=== PATIENT | female | born 1990 ===

== ENCOUNTER → 2023-10-09 07:55 | Outpatient (BNVA) | payer OTHER, SELFPAY | PROVIDERS: PCP Clinical Nurse Specialist Adult Health; Visit Provider Nurse Practitioner Family | DX: L91.8 Other hypertrophic disorders of the skin (principal); D22.5 Melanocytic nevi of trunk; L81.4 Other melanin hyperpigmentation; Z71.89 Other specified counseling | CPT/HCPCS: 17110; 99203 ==

== ENCOUNTER → 2024-08-29 11:28 | Outpatient (BNVA) | payer OTHER, SELFPAY | PROVIDERS: PCP Clinical Nurse Specialist Adult Health; Visit Provider Nurse Practitioner Family | DX: L70.0 Acne vulgaris (principal); L73.8 Other specified follicular disorders; D22.5 Melanocytic nevi of trunk; L81.4 Other melanin hyperpigmentation; L57.0 Actinic keratosis | CPT/HCPCS: 17000; 99213 ==

== ENCOUNTER 2024-10-16 10:24 | Outpatient (CLI) | payer OTHER, SELFPAY ==
--- NOTE | 2024-10-16 10:29 | MR_ITS ---
WS: [id number] MRI LEFT SHOULDER HISTORY: NONTRAUMATIC TEAR OF L ROTATOR CUFF COMPARISON: None available. TECHNIQUE: Multiplanar sequences of the shoulder joint are submitted. Moderate AC joint arthritis. There is mild encroachment upon the myotendinous portion of the supraspinatus. Small amount of fluid in the subacromial bursa. Enthesopathy from the distal clavicle encroaching upon the distal supraspinatus. No os acromion. Normal position of the biceps tendon. Normal glenohumeral joint. There is increased T2 signal along the bursal surface of the distal supraspinatus tendon. Signal abnormality is just distal to the AC joint impingement and involves the bursal surface. No full-thickness tear is identified. There is also increased T2 signal related to subacromial impingement and enthesopathy. Insertion site tear of the supraspinatus tendon. Tendinopathy in the more proximal supraspinatus tendon. Marked tendinopathy of the distal subscapularis tendon. Subscapularis tendon is being displaced by a lesser tuberosity osteophyte. Moderate narrowing of the coracohumeral interval. No labral tear id entified. MR/MR shoulder LT wo con* [id number] IMPRESSION: 1. Moderate AC joint arthritis encroaching upon the myotendinous portion of th e supraspinatus. 2. Moderate subacromial impingement by enthesopathy from the acromion. 3. Edema within the bursal surface of the distal supraspinatus tendon at the l evel of the AC joint and subacromial impingement. 4. Insertion site tear of the supraspinatus tendon with more proximal tendinop athy. 5. Marked tendinopathy with loss of the normal morphology of the distal subsca pularis tendon. Marked narrowing of the coracohumeral interval.
== END 2024-10-16 10:25 | disposition home or self-care (01) ==
PROVIDERS: PCP Clinical Nurse Specialist Adult Health; Visit Provider Family Medicine
DX: M75.102 Unspecified rotator cuff tear or rupture of left shoulder, not specified as traumatic (principal); M19.012 Primary osteoarthritis, left shoulder; M75.42 Impingement syndrome of left shoulder; R60.0 Localized edema; M67.814 Other specified disorders of tendon, left shoulder; M77.8 Other enthesopathies, not elsewhere classified; M25.712 Osteophyte, left shoulder; R93.7 Abnormal findings on diagnostic imaging of other parts of musculoskeletal system
CPT/HCPCS: 73221

== ENCOUNTER → 2024-11-04 11:25 | Outpatient (BNVA) | payer OTHER, SELFPAY | PROVIDERS: PCP Clinical Nurse Specialist Adult Health; Visit Provider Nurse Practitioner | DX: M25.512 Pain in left shoulder (principal); M75.102 Unspecified rotator cuff tear or rupture of left shoulder, not specified as traumatic; M75.42 Impingement syndrome of left shoulder; M19.012 Primary osteoarthritis, left shoulder; M67.911 Unspecified disorder of synovium and tendon, right shoulder; M75.51 Bursitis of right shoulder | CPT/HCPCS: 36415; 73030; 80053; 81001; 85025; 99204 ==

== ENCOUNTER 2024-11-19 12:15 | Day surgery (SDC) | payer OTHER, SELFPAY ==
[2024-11-19] VITALS (10 sets, daily range): BP systolic 126–160; BP diastolic 88–107; PULSE 67–100; RESP 10–18; TEMP 36.1–36.7; O2SAT 95–100; BMI 35.4
[2024-11-19] MEDS: acetaminophen 1,000 MG/100 ML PIGGYBACK 400 MG IV (13:19)
--- NOTE | 2024-11-19 13:54 | ANES.PREANE2 ---
Pre-Anesthetic Assessment Height/Weight: Height 1.6 m Weight 90.718 kg Operation Date: 11/19/24 13:55 Proposed Procedures p Distal Clavicle Resection(Left) - Nara White MD s LEFT Shoulder Acromioplasty(Left) - Nara White MD s Debridement Shoulder(Left) - Nara White MD s POSSIBLE Rotator Cuff Repair(Left) - Nara White MD Familial anesthetic complications: None Was Beta Kaela taken within 24 hours: N/A Was Clonidine taken within 24 hours: N/A Last intake: > 8hrs Social No alcohol and No tobacco Exam alert, oriented x 3, clear to auscultation bilaterally and regular rate & rhythm Airway Mallampati: Class II Dentition: full Anesthetic Plan ASA status: 1 Anesthesia: General and Regional (specify below) Medications/Allergies Home Medications ?Medication ?Instructions ?Recorded ?Confirmed ?Last Taken ?Type hydroxyzine HCl 50 mg tablet 100 mg (2 x 50 mg) PO .HS PRN 05/21/24 11/18/24 11/17/24 Rx insomnia #180 tabs bupropion HCl 300 mg 24 hr tablet, 300 mg PO BEDTIME 11/18/24 11/18/24 11/17/24 History extended release (Wellbutrin XL) lamotrigine 200 mg tablet 200 mg PO BEDTIME 11/18/24 11/18/24 11/17/24 History (Lamictal) vilazodone 20 mg tablet (Viibryd) 20 mg PO BEDTIME 11/18/24 11/18/24 11/17/24 History Allergies Allergy/AdvReac Type Severity Reaction Status Date / Time No Known Allergies Allergy Verified 11/19/24 13:46 Current Medications Generic Name Dose Route Start Last Admin Trade Name Freq PRN Reason Stop Dose Admin Sodium Chloride 1,000 mls @ 30 mls/hr 11/19/24 13:00 11/19/24 13:20 Sodium Chloride 0.9% IV 11/20/24 12:59 30 mls/hr .Q24H BIJAL Administration PFSH Anesthesia Medical History (Updated 11/12/24 @ 14:25 by YUDI Witt-) Tendinopathy of right rotator cuff Tear of left supraspinatus tendon Bursitis of shoulder, right Subacromial impingement of left shoulder Arthritis of left acromioclavicular joint Psychiatric care Hx of mammogram first one at age 30 Palpitations previous holtor monitor revealed occasional ectopic beats. Screening for breast cancer Renal calculi hx of removal of retained renal calculi Morbid obesity Generalized anxiety disorder Bipolar 2 disorder History of skin cancer unsure the type. non-melanoma. located on face. Seasonal allergies Surgical History Hx of colonoscopy X3. Last one was in 2021. fam hx of colon cancer. hemorrhoids seen on colonoscopy Hx of section 2008, 2017 Hx of cholecystectomy 2014 H/O hysterectomy for benign disease retained ovaries-2019 Family History Father CAD (coronary artery disease) Hypertension Grandmother Breast cancer Family/Other Colon cancer Other Prostate cancer Denies family history of Diabetes Clotting disorder Anesthesia complication Bleeding disorder Social History Smoking and tobacco/nicotine status: never used tobacco/nicotine Quit status (tobacco/nicotine): has quit using Former quit date comment: very long time ago, for about 1year Alcohol intake: current Alcohol intake frequency: holidays/special occasions only Substance/Drug Use: current Other substance/drug use details: smoking Marital status: Number of children: 2 Current occupation: solidworks mechanical designer Anesthesia Procedures Nerve Block Nerve Block 1: Main Anesthesia: general anesthesia Time Out Performed: Yes Consent: requested by attending/covering physician, from patient, from other, risks and benefits reviewed and patient agrees to proceed Nerve block location: interscalene (L) Anesthesia monitors applied: pulse oximetry, EKG and BP cuff Nerve block position: semi sitting Anesthetic Used: ropivicaine 0.5% (20 ml) and with decadron (4 mg) Ultrasound used to: recognize landmarks Interscalene/Femoral BLK: 2 stimuplex 22 g needle used for position and inplane approach, visualize local anesthetic spread and no vascular puncture identified Injection: neg aspiration of heme Patient Tolerated Procedure: well Complications: none
--- NOTE | 2024-11-19 14:53 | W.PM.OPSUD ---
Surgery/Procedure H&P Update DATE OF PROCEDURE: November 19, 2024 DATE H&P PERFORMED: 11/13/24 H&P UPDATE INFORMATION: I have reviewed H&P completed within last 30 days, I have examined patient prior to procedure, No changes to prior documentation, H&P is in [facility] EMR on date indicated and Risks and benefits of the procedure reviewed PLANNED PROCEDURE: Operation Date: 11/19/24 13:55 Proposed Procedures p Distal Clavicle Resection(Left) - Nara White MD s LEFT Shoulder Acromioplasty(Left) - MD franky Restrepo Debridement Shoulder(Left) - MD franky Restrepo POSSIBLE Rotator Cuff Repair(Left) - Nara White MD Related Problem List Diagnoses 1. Subacromial impingement of left shoulder: 2. Tendinopathy of right rotator cuff: 3. Arthritis of left acromioclavicular joint: Qualifiers: Laterality: left 4. Tear of left supraspinatus tendon:
[2024-11-19] MEDS: ceFAZolin 2,000 mg SDV 2000 MG IVP (14:55)
[2024-11-19] MEDS: ceFAZolin 1,000 mg SDV 1000 MG IRRIGATION (15:43)
--- NOTE | 2024-11-19 16:19 | P.OP_ITS ---
Operative Report Date of procedure: November 19, 2024 Pre-op diagnosis: Impingement left shoulder with severe degenerative osteoarthritis acromioclavicular joint, rotator cuff tendinitis and bursitis Post-op diagnosis: Impingement left shoulder with severe degenerative osteoarthritis acromioclavicular joint, rotator cuff tendinitis and bursitis Post-op findings: Inflammation of the rotator cuff and thickening of the bursa consistent with tendinopathy and bursitis. Significant degenerative change within the acromioclavicular joint and a very tight subacromial space consistent with d iagnosis of impingement. 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 Patient had an MRI without contrast which demonstrated moderate acromioclavicular joint osteoarthritis which encroached upon the myotendinous portion of the supraspinatus. There was also subacromial impingement from an enthesopathy of the acromion. There is edema within the bursal surface of the distal supraspinatus tendon at the level of the AC joint and the subacromial impingement. On MRI, there appeared to be an insertional site tear of the supraspinatus with proximal tendinopathy. Patient was unresponsive to conservative measures. Secondary to this, she wished to proceed with operative intervention, and this was scheduled for her. Risks and complications were discussed in the office. Consents were signed and questions were answered. Procedure: The patient was brought to the operating theater and underwent general, intubated, anesthesia, ASA 1. The patient was placed in a beachchair position and subsequently the left upper extremity was prepped and draped in the usual fashion utilizing DuraPrep. The arm was draped free. A surgical pause was performed prior to commencement of the surgical procedure. At the time of the surgical pause, we confirmed the site and side of surgery as well as administration of appropriate preoperative antibiotics Ancef 2 g. MRI was also reviewed at that time. Following the surgical pause, an incision was made at approximately the level of the acromioclavicular joint extending across the anterolateral corner of the acromion and distally as necessary. Care was taken to avoid injury to the ax illary nerve by limiting the distal extent of the incision. Dissection continued through skin and soft tissues using a scalpel. Hemostasis was obtained using electrocautery. Soft tissues were elevated off the acromion and acromioclavicular joint. The distal clavicle was exposed, and there was noted to be degenerative change. There were also osteophytes particularly on the superior and inferior surfaces. The distal clavicle was removed with an oscillating saw. This was followed by a power rasp to smooth the resected surface. An acromioplasty was then accomplished using a combination of a saw and a power rasp. With this, we were able to remove compression caused by the acromion. The rotator cuff was then evaluated to look for tears. There was significant bursitis requiring excision of the bursa. Rotator cuff was evaluated and found to have multiple areas of irritation which were slightly debrided using a rongeur. The shoulder was placed through further range of motion to assure there was no evidence of rotator cuff tear. The wound was irrigated and closure was accomplished with 0 Vicryl in the capsular tissues overlying the acromioclavicular joint area as well as over the acromion and down into the deltoid muscle. 3-0 Monocryl was used to close the subcutaneous tissues followed by 4-0 Monocryl subcuticular closure. This was followed by Dermabond, Steri-Strips, and OpSite. The patient was placed in a sling and was returned to the recovery room in satisfactory condition. The patient will be discharged to home to follow-up in the office as scheduled. There were no complications and no specimens. Related Problem List Diagnoses 1. Subacromial impingement of left shoulder: 2. Arthritis of left acromioclavicular joint: 3. Tendinopathy of left rotator cuff: 4. Bursitis of shoulder, right:
--- NOTE | 2024-11-19 17:03 | PC.NURSE ---
0 - pt awake and questioning where her nose ring is - describes it as a small, thin, clear, hoop - pt did not arrive in pacu with nose ring - left nare examined per this nurse - unremarkable - this nurse searched pts blanket and sling - unable to locate nose ring - OR room has since been cleaned - pt aware
== END 2024-11-19 17:42 | disposition home or self-care (01) ==
PROVIDERS: PCP Family Medicine; Visit Provider Specialist
PROC: (CPT 23120; principal; 2024-11-19 13:55)
PROC: (CPT 23130; 2024-11-19 13:55)
DX: M75.42 Impingement syndrome of left shoulder (principal); M19.012 Primary osteoarthritis, left shoulder; M75.52 Bursitis of left shoulder; M75.112 Incomplete rotator cuff tear or rupture of left shoulder, not specified as traumatic; R00.2 Palpitations; E66.01 Morbid (severe) obesity due to excess calories; Z68.35 Body mass index [BMI] 35.0-35.9, adult; F41.9 Anxiety disorder, unspecified; F31.81 Bipolar II disorder; Z85.828 Personal history of other malignant neoplasm of skin; Z87.891 Personal history of nicotine dependence
CPT/HCPCS: 23130; 23120; J0131; J0690; J1100; J2250; J2405; J2704; J2795; J3010; J3490; J7030; J9999

== ENCOUNTER → 2024-12-02 13:15 | Outpatient (BNVA) | payer OTHER, SELFPAY | PROVIDERS: PCP Family Medicine; Visit Provider Nurse Practitioner | DX: Z98.890 Other specified postprocedural states (principal) | CPT/HCPCS: 99024 ==

== ENCOUNTER → 2025-03-14 11:07 | Outpatient (BNVA) | payer OTHER, SELFPAY | PROVIDERS: PCP Family Medicine; Visit Provider Nurse Practitioner | DX: Z47.89 Encounter for other orthopedic aftercare (principal); M62.838 Other muscle spasm | CPT/HCPCS: 99214 ==